=== PATIENT | male | born 1990 | race American Indian/Alaskan Native ===

== ENCOUNTER 2017-06-13 23:34 | Emergency (ER) | payer MEDICAID, OTHER ==
[2017-06-13 23:50] VITALS: BP 140/71; PULSE 89; RESP 18; TEMP 98.5; O2SAT 99
--- NOTE | 2017-06-13 23:57 | ED PDOC ---
Arrival/HPI - General Chief Complaint: Male Genitourinary Time Seen by Provider: 06/13/17 23:39 Historian: Patient - History of Present Illness Narrative History of Present Illness (Text): 06/13/17 23:56 Edgar Francisco is a 27 year old male who presents to the emergency department with complaining of exposure to a sexually transmitted disease with his girlfriend. Patient states he is sexually active with his girlfriend, who tested positive for chlamydia and trichomoniasis. Patient states he would like to be treated. Patient denies any penile discharge, fever, rash or any other complaints. Time/Duration: Prior to Arrival Symptom Course: Unchanged Activities at Onset: Other (sexual encounter) Context: Home Past Medical History - Provider Review Nursing Documentation Reviewed: Yes - Psychiatric Hx Substance Use: No Family/Social History - Physician Review Nursing Documentation Reviewed: Yes Family/Social History: Unknown Family HX Smoking Status: Light Smoker < 10 Cigarettes Daily Hx Alcohol Use: No Hx Substance Use: No Allergies/Home Meds Allergies/Adverse Reactions: Allergies No Known Allergies Allergy (Verified 06/13/17 23:47) Home Medications: Home Meds Medication Instructions Recorded Confirmed No Known Home Med 06/13/17 06/13/17 Review of Systems - Physician Review All systems were reviewed & negative as marked: Yes - Review of Systems Constitutional: Normal Eyes: Normal ENT: Normal Respiratory: Normal. absent: SOB, Cough Cardiovascular: Normal. absent: Chest Pain, Palpitations Gastrointestinal: Normal. absent: Abdominal Pain, Diarrhea, Nausea, Vomiting Genitourinary Male: Normal. absent: Dysuria, Frequency, Hematuria, Urinary Output Changes Musculoskeletal: Normal. absent: Back Pain, Neck Pain Skin: Normal. absent: Rash Neurological: Normal. absent: Headache, Dizziness Endocrine: Normal Hemo/Lymphatic: Normal Psychiatric: Normal Physical Exam Vital Signs Reviewed: Yes Vital Signs Temp Pulse Resp BP Pulse Ox 06/13/17 23:48 98.5 F 89 18 140/71 99 Temperature: Afebrile Blood Pressure: Normal Pulse: Regular Respiratory Rate: Normal Appearance: Positive for: Well-Appearing, Non-Toxic, Comfortable Pain Distress: None Mental Status: Positive for: Alert and Oriented X 3 - Systems Exam Head: Present: Atraumatic, Normocephalic Pupils: Present: PERRL Extroacular Muscles: Present: EOMI Conjunctiva: Present: Normal Mouth: Present: Moist Mucous Membranes Neck: Present: Normal Range of Motion Respiratory/Chest: Present: Clear to Auscultation, Good Air Exchange. No: Respiratory Distress, Accessory Muscle Use Cardiovascular: Present: Regular Rate and Rhythm, Normal S1, S2. No: Murmurs Abdomen: Present: Normal Bowel Sounds. No: Tenderness, Distention, Peritoneal Signs Back: Present: Normal Inspection Upper Extremity: Present: Normal Inspection. No: Cyanosis, Edema Lower Extremity: Present: Normal Inspection. No: Edema Neurological: Present: GCS=15, CN II-XII Intact, Speech Normal Skin: Present: Warm, Dry, Normal Color. No: Rashes Psychiatric: Present: Alert, Oriented x 3, Normal Insight, Normal Concentration Medical Decision Making ED Course and Treatment: 06/13/17 23:56 Impression: 27 year old male presents to the emergency department complaining of exposure to a sexually transmitted disease. Plan: -- GC/ Chlamydia, -- Rocephin -- Flagyl -- Zithromax -- Reassess and disposition Progress Notes: patient agreeable with STD prophylaxis. Patient is asymptomatic, denies any complaints, says he feels fine. Patient in agreement with plan to be discharged home. Patient is stable for discharge. Patient was instructed to follow up with physician/clinic or return if symptoms worsen or new concerning symptoms arise. - Medication Orders Current Medication Orders: Discontinued Medications Azithromycin (Zithromax) 1,000 mg PO ONCE STA PRN Reason: Protocol Stop: 06/14/17 00:06 Ceftriaxone Sodium (Rocephin) 250 mg IM STAT STA PRN Reason: Protocol Stop: 06/14/17 00:06 Metronidazole (Flagyl) 2,000 mg PO STAT STA PRN Reason: Protocol Stop: 06/14/17 00:08 Last Admin: 06/14/17 00:21 Dose: 2,000 mg - Pedroibe Statement The provider has reviewed the documentation as recorded by the Nona Marino training under Dori Clay All medical record entries made by the Nona were at my direction and personally dictated by me. I have reviewed the chart and agree that the record accurately reflects my personal performance of the history, physical exam, medical decision making, and the department course for this patient. I have also personally directed, reviewed, and agree with the discharge instructions and disposition. Disposition/Present on Arrival - Present on Arrival Any Indicators Present on Arrival: No History of DVT/PE: No History of Uncontrolled Diabetes: No Urinary Catheter: No History of Decub. Ulcer: No History Surgical Site Infection Following: None - Disposition Have Diagnosis and Disposition been Completed?: Yes Diagnosis: Exposure to sexually transmitted disease (STD) Disposition: HOME/ ROUTINE Disposition Time: 00:13 Patient Plan: Discharge Condition: STABLE Discharge Instructions (ExitCare): Chlamydia (ED), Sexually Transmitted Diseases (ED), Trichomoniasis (ED) Additional Instructions: Refrain from sexual intercourse/Follow up with your doctor this week/ Forms: [employer] (Tajik)
[2017-06-14] MEDS ORDERED: cefTRIAXone (Rocephin) 250 mg Inj IM STA (00:05)
== END 2017-06-14 00:38 | disposition home or self-care (01) ==
LOC: ED 23:34
DX: Z20.2 Contact with and (suspected) exposure to infections with a predominantly sexual mode of transmission (principal)
CPT/HCPCS: 87491; 87591; 96372; 99283; J0696